=== PATIENT | male | born 1990 | race Two or more races ===

== ENCOUNTER 2020-02-19 21:37 | Emergency (ER) | payer OTHER ==
[~2020-02-19] VITALS: Ht 170.2 cm; Wt 65.9 kg
[~2020-02-19 21:37] MED LIST: NOCURR
[2020-02-20 00:03] VITALS: BP 126/88
== END 2020-02-20 00:04 | disposition home or self-care (01) ==
LOC: EMS 21:37
DX: Z71.1 Person with feared health complaint in whom no diagnosis is made (principal); F14.90 Cocaine use, unspecified, uncomplicated; F12.90 Cannabis use, unspecified, uncomplicated; F15.90 Other stimulant use, unspecified, uncomplicated

== ENCOUNTER 2020-03-16 20:34 | Inpatient (IN) | payer MEDICAID, OTHER ==
[~2020-03-16] VITALS: Ht 167.6 cm; Wt 71.7 kg
[2020-03-16 21:39] LABS: BASOPHILS % (AUTO) 1.2 % (0.0-2.0); EOSINOPHILS % (AUTO) 1.1 % (1.0-6.0); HEMATOCRIT 43.1 % (41-53); LYMPHOCYTES # (AUTO) 1.6 K/uL (1.0-4.8); LYMPHOCYTES % (AUTO) 15.9 % (22.0-44.0); MEAN CORPUSCULAR HEMOGLOBIN 27.6 pg (26.0-34.0); MEAN CORPUSCULAR HGB CONC 32.6 G/dL (31.0-37.0); MEAN CORPUSCULAR VOLUME 85 fL (80-100); MONOCYTES # (AUTO) 0.6 K/uL (0.1-1.0); MONOCYTES % (AUTO) 5.5 % (2.0-9.0); NEUTROPHILS # (AUTO) 7.7 K/uL (1.8-7.7); NEUTROPHILS % (AUTO) 76.3 % (40.0-70.0); PLATELET COUNT (AUTO) 185 K/uL (150-450); RED BLOOD CELL COUNT(AUTO) 5.09 MIL/uL (4.50-5.90); RED CELL DISTRIBUTION WIDTH 16.3 % (11.5-14.5)
[2020-03-16 22:08] LABS: AMPHET/METH SCREEN,URINE NEGATIVE (NEGATIVE); BARBITURATE SCREEN, URINE NEGATIVE (NEGATIVE); BENZODIAZEPINES SCREEN,URINE NEGATIVE (NEGATIVE); CANNABINOID SCREEN,URINE POSITIVE (NEGATIVE); COCAINE SCREEN,URINE NEGATIVE (NEGATIVE); METHADONE SCREEN, URINE NEGATIVE (NEGATIVE); OPIATE SCREEN,URINE NEGATIVE (NEGATIVE)
[2020-03-16 22:10] LABS: PHENCYCLIDINE SCREEN,URINE NEGATIVE (NEGATIVE)
[2020-03-16 23:06] LABS: ALANINE AMINOTRANSFERASE 33 U/L (12-78); ALBUMIN 3.6 g/dL (3.4-5.0); ALKALINE PHOSPHATASE 63 U/L (46-116); ANION GAP 15 mmol/L (8-16); ASPARTATE AMINOTRANSFERASE 26 U/L (15-37); BILIRUBIN,TOTAL 0.2 mg/dL (0.1-1.0); CALCIUM, TOTAL 8.8 mg/dL (8.8-10.5); CARBON DIOXIDE 22 mmol/L (22-29); CHLORIDE 112 mmol/L (98-107); GLOMERULAR FILTR. RATE CALC > 60 mL/min (>60); GLUCOSE,RANDOM 84 mg/dL (70-110); POTASSIUM 3.8 mmol/L (3.5-5.1); SODIUM SERUM 149 mmol/L (136-145); TOTAL PROTEIN, SERUM 6.7 g/dL (6.4-8.2); UREA NITROGEN, BLOOD 7 mg/dL (7-18)
[2020-03-16] MEDS ORDERED: ZOLPIDEM TARTRATE 10 MG TABLET PO PRN (23:45)
[2020-03-16] MEDS ORDERED: LORazepam 2 MG TABLET PO PRN (23:45)
[2020-03-16] MEDS ORDERED: OLANZapine 5 MG RAPDIS TABLET PO PRN (23:45)
[2020-03-17] VITALS (12 sets, daily range): BP systolic 114–158; BP diastolic 66–93
[2020-03-17 07:08] LABS: CHOL/HDL RATIO 2.6 (4.2-7.3)
[2020-03-17] MEDS ORDERED: HydrOXYzine PAMOATE 50 MG CAPSULE PO PRN (10:15)
[2020-03-17] MEDS ORDERED: MAGNESIUM HYDROXIDE SUSPENSION 30 ML UDCUP PO PRN (10:15)
[2020-03-17] MEDS ORDERED: DIAZEPAM 10 MG TABLET PO PRN (10:15)
[2020-03-17] MEDS ORDERED: MAG HYDROX/AL HYDROX/SIMETH ES 30 ML SUSPENSION UDCUP PO PRN (10:15)
[2020-03-17] MEDS ORDERED: PROMETHAZINE HCL 25 MG TABLET PO PRN (10:15)
[2020-03-17] MEDS ORDERED: CYANOCOBALAMIN 1,000 MCG/ML VIAL IM ONE (10:15)
[2020-03-17] MEDS ORDERED: ACETAMINOPHEN 325 MG TABLET PO PRN (10:15)
[2020-03-17] MEDS ORDERED: LOPERAMIDE HCL 2 MG CAPSULE PO PRN ×2 (10:15)
[2020-03-17] MEDS ORDERED: GuaiFENesin/D-METHORPHAN [SUGAR-FREE] 200-20MG/10 ML SYRUP UDCUP PO PRN (10:15)
[2020-03-17] MEDS ORDERED: TUBERCULIN, PURIFIED PROTEIN DERIVATIVE 5 TU/0.1 ML SYRINGE ID ONE (10:15)
[2020-03-17] MEDS: THIAMINE 100 MG TABLET PO SCH (16:52)
[2020-03-18 01:00] VITALS: BP 117/62
[2020-03-18 03:00] VITALS: BP 117/62
[2020-03-18] MEDS ORDERED: DIAZEPAM 10 MG TABLET PO PRN (07:00)
[2020-03-18 07:02] LABS: FREE T4 (FREE THYROXINE) 0.97 ng/dL (0.76-1.46); THYROID STIMULATING HORMONE 2.4 uIU/mL (0.36-3.74)
[2020-03-18 07:08] VITALS: BP 116/72
[2020-03-18] MEDS: NALTREXONE HCL 50 MG TABLET PO SCH (09:16)
[2020-03-18] MEDS: FOLIC ACID 1 MG TABLET PO SCH (09:17)
[2020-03-18] MEDS: FLUoxetine HCL 20 MG CAPSULE PO SCH (09:17)
[2020-03-18] MEDS: MULTIVITAMINS WITH MINERALS, THERAPEUTIC TABLET PO SCH (09:17)
[2020-03-18] MEDS: THIAMINE 100 MG TABLET PO SCH ×2 (09:17→17:09)
[2020-03-18] MEDS: DIAZEPAM 10 MG TABLET PO SCH ×4 (09:18→21:32)
[2020-03-18 10:14] VITALS: BP 124/61
[2020-03-18 16:25] VITALS: BP 105/68
[2020-03-18 16:28] VITALS: BP 105/68
[2020-03-18] MEDS ORDERED: FLUO-191 PO (19:14)
[2020-03-18] MEDS ORDERED: NALT50TA PO (19:14)
[2020-03-19 02:42] VITALS: BP 120/80
[2020-03-19 02:44] VITALS: BP 120/80
[2020-03-19 08:00] VITALS: BP 128/72
[2020-03-19] MEDS ORDERED: NICOTINE 14 MG/24 HOUR PATCH TD SCH (09:00)
[2020-03-19 09:16] VITALS: BP 128/72
[2020-03-19] MEDS: DIAZEPAM 10 MG TABLET PO SCH ×2 (09:55→13:18)
[2020-03-19] MEDS: FLUoxetine HCL 20 MG CAPSULE PO SCH (09:55)
[2020-03-19] MEDS: THIAMINE 100 MG TABLET PO SCH (09:55)
[2020-03-19] MEDS: MULTIVITAMINS WITH MINERALS, THERAPEUTIC TABLET PO SCH (09:55)
[2020-03-19] MEDS: NALTREXONE HCL 50 MG TABLET PO SCH (09:55)
[2020-03-19] MEDS: FOLIC ACID 1 MG TABLET PO SCH (09:55)
[2020-03-20] MEDS ORDERED: DIAZEPAM 5 MG TABLET PO PRN (07:00)
[2020-03-20] MEDS ORDERED: DIAZEPAM 5 MG TABLET PO SCH (09:00)
[2020-03-21] MEDS ORDERED: DIAZEPAM 5 MG TABLET PO PRN (07:00)
== END 2020-03-19 15:25 | disposition home or self-care (01) | DRG 885 ==
LOC: EMS 20:36 → 3EI 23:42
PROVIDERS: ADMIT Psychiatry & Neurology Psychiatry; ATTEND Psychiatry & Neurology Psychiatry
DX: F33.2 Major depressive disorder, recurrent severe without psychotic features (principal); Z91.19 Patient's noncompliance with other medical treatment and regimen; F14.90 Cocaine use, unspecified, uncomplicated; F17.210 Nicotine dependence, cigarettes, uncomplicated; F10.10 Alcohol abuse, uncomplicated; Y90.9 Presence of alcohol in blood, level not specified; F12.90 Cannabis use, unspecified, uncomplicated
CPT/HCPCS: 83036; 84439; 84443; 86592; G0480; J3420